=== PATIENT | male | born 1980 | race Caucasian/White ===

== ENCOUNTER → 2018-05-24 14:04 | Outpatient (CLI) | payer OTHER, SELFPAY | PROVIDERS: PCP Internal Medicine; Visit Provider Internal Medicine | DX: G47.33 Obstructive sleep apnea (adult) (pediatric) (principal); I10 Essential (primary) hypertension; R06.83 Snoring; E66.9 Obesity, unspecified | CPT/HCPCS: 95806 ==

== ENCOUNTER 2020-04-29 10:19 | Emergency (ER) | payer OTHER, SELFPAY ==
[2020-04-29 10:45] VITALS: BP 144/80; PULSE 68; RESP 19; TEMP 36.6; O2SAT 98; BMI 34.4
--- NOTE | 2020-04-29 10:58 | HMH.EDUTC ---
[facility] [place] Clinical Impression: Encounter for laboratory testing for COVID-19 virus Disposition: Home, Self-Care Condition on Discharge: Good Instructions: DI for COVID-19 (Suspected or Confirmed ), COVID-19: Testing and Tracing, Preventing the Spread of Coronavirus Discharge Instructions Additional Instructions: *Monitor Temp, Over the counter Motrin or Tylenol as directed/as needed Tylenol every 4 hours and Motrin every 6 hours (as long as your family doctor has told you that you can take it) for fever or pain. and straight to ER if unable to lower temp less than 101.0 after medication given Follow up IMMEDIATELY for new or worsening symptoms or no Noticeable improvement over the next 48-72 hours. 911 for difficulty breathing or swallowing You were tested for today for COVID19 your test result should be back in the next 24-48 hours, you may call to the [facility] to see if your test results are back in the next 48 hours [phone] [facility] hours are 9am-9pm You was given a handout with instructions for Self Quarantine and Self isolation for while you wait on test results and what to do if they are positive If you are positive the Health Dept will be contacting you also Referrals: Bertin Jimenez [Primary Care Provider] - As needed Time of Disposition: 10:59 Medical Decision Making - Ovidio Inquiry Pt receiving controlled substance: No Ovidio was queried for this patient: No Vital Signs: 04/29/20 10:45 Temperature 97.9 F Temperature Source Oral Pulse Rate [Left Brachial] 68 Respiratory Rate 19 Blood Pressure [Left Arm] 144/80 H Blood Pressure Mean [Left Arm] 101 Blood Pressure Source [Left Arm] Automatic Cuff Blood Pressure Position [Left Arm] Sitting 02 Sat by Pulse Oximetry 98 Oxygen Delivery Method Room Air Orders (Tests/Meds): ORDERS Category Date Time Status Covid-19 Nasal PCR ([facility]) Routine Lab 04/29/20 10:54 Received [facility] [place] HPI - General Stated complaint: Covid test Time Seen by Provider: 04/29/20 10:58 Mode of Arrival: Ambulatory Source of Information: Patient Limitations: No Limitations Description of Symptoms (Recalled from Triage Doc. by RN): REQUESTING COVID TEST; DENIES EXPOSURE OR SYMPTOMS HEENT Symptoms (Recalled from RN notes): No Resp Symptoms (Recalled from RN notes): No Skin Symptoms (Recalled from RN notes): No MS Symptoms (Recalled from RN notes): No Functional Status (Recalled from RN notes): WNL - History of Present Illness Provider Complaint: Patient state that he is wanting to get tested States that his hasnt felt well since yesterday having bodyaches, chills and fever and he has been caring for her Denies any symptoms at this time and no known exposure - Related Data Home Medications Medication Instructions Recorded Confirmed bisoprolol 5 1 tab PO DAILY 30 Days #30 tab 07/31/18 04/29/20 mg-hydrochlorothiazide 6.25 mg tablet Allergies Allergy/AdvReac Type Severity Reaction Status Date / Time No Known Allergies Allergy Verified 07/31/18 13:23 - Worker's Comp Is this a Worker's Comp case?: No [facility] History - Hepatitis A Screen Drug use history?: No High risk sexual behaviors?: No History of sexually transmitted infection?: No Currently employed?: No Childcare worker?: No Do you have indoor plumbing?: Yes Do you have electricity?: Yes Attestation statement:: This patient has been screened for Hepatitis A risk factors. I have reviewed the patient's past medical history: Yes Medical History: Reports:: Hypertension Denies:: Diabetes Mellitus Type 1, Diabetes Mellitus Type 2, MRSA Other Surgeries: Yes: No Previous Surgery Amputation: No - Social History Smoking Status: Never smoker Alcohol Intake: never Alcohol Intake Frequency:: other Substance Use Type: denies use Occupational Status: other Family Hx:: No significant family history ROS Obtained: Yes All systems reviewed & no additional complaints, Yes Systems reviewed as appropriate
[2020-04-29 11:11] VITALS: BP 144/80; PULSE 68; RESP 19; TEMP 36.6; O2SAT 98
--- NOTE | 2020-04-29 16:28 | PC.NURSE ---
PT NOTIFIED OF POSITIVE COVID REULT
== END 2020-04-29 11:17 | disposition home or self-care (01) ==
PROVIDERS: Emergency Provider Nurse Practitioner; PCP Internal Medicine
DX: U07.1 COVID-19 (principal); I10 Essential (primary) hypertension; Z79.899 Other long term (current) drug therapy
CPT/HCPCS: 99202; G0463; U0003

== ENCOUNTER → 2021-01-03 12:44 | Outpatient (CLI) | payer OTHER, SELFPAY | PROVIDERS: PCP Internal Medicine; Visit Provider Internal Medicine | DX: Z20.822 Contact with and (suspected) exposure to COVID-19 (principal) | CPT/HCPCS: C9803; U0003; U0005 ==

== ENCOUNTER → 2021-03-27 16:18 | Outpatient (CLI) | payer OTHER, SELFPAY ==
[2021-03-27 16:54] LABS: Coronavirus 19, PCR Not Detected (NotDetected); Influenza A, PCR Not Detected (NotDetected); Influenza B, PCR Not Detected (NotDetected)
[2021-03-27 17:10] LABS: Strep Scrn Group A (Rapid) Negative (Negative)
== END ==
PROVIDERS: PCP Internal Medicine; Visit Provider Internal Medicine
DX: Z20.822 Contact with and (suspected) exposure to COVID-19 (principal)
CPT/HCPCS: 87430; C9803; U0003; U0005

== ENCOUNTER → 2021-06-12 14:17 | Outpatient (CLI) | payer OTHER, SELFPAY ==
[2021-06-12 15:16] LABS: Basophils # 0.1 K/mm3 (0-0.2); Eosinophils # 0.2 K/mm3 (0.0-0.4); Eosinophils % 2.9 % (0.1-12.0); Hematocrit 46.1 % (42.0-52.0); Hemoglobin 15.4 g/dL (14.1-18.0); Lymphocytes # 1.9 K/mm3 (0.7-4.5); Lymphocytes % 27.1 % (10-50); Mean Corpuscular HGB Conc 33.3 g/dL (31.8-35.4); Mean Corpuscular Hemoglobin 29.4 pg (27.0-31.2); Mean Platelet Volume 8.1 fl (7.4-10.4); Monocytes # 0.4 K/mm3 (0.1-1.0); Monocytes % 4.9 % (1.7-9.3); Neutrophils # 4.5 K/mm3 (1.8-7.8); Platelet Count 295 K/mm3 (142-424); Red Blood Count 5.24 M/mm3 (4.60-6.20); White Blood Count 7.1 K/mm3 (4.8-10.8)
[2021-06-12 16:37] LABS: Alanine Aminotransferase 24 U/L (12-78); Albumin Level 4.6 g/dl (3.5-5.0); Albumin/Globulin Ratio 1.9 (1.1-1.8); Alkaline Phosphatase 74 U/L (38-126); Amylase 73 U/L (30-110); Anion Gap 15.4 mEq/L (5-15); Aspartate Amino Transferase 25 U/L (17-59); Bilirubin,Total 0.5 mg/dl (0.2-1.3); Blood Urea Nitrogen 17 mg/dl (9-20); Calcium 9.2 mg/dl (8.4-10.2); Carbon Dioxide 29 mmol/L (22.0-30.0); Chloride 101 mmol/L (98-107); Estimated Glomerular Filt Rate 125 ml/min (>60); GFR (African American) 151 ML/MIN (>60); Globulin 2.4 g/dL (1.3-3.2); Glucose 75 mg/dl (74-100); Potassium 4.4 mmoL/L (3.5-5.1); Sodium 141 mmol/L (136-145)
== END ==
PROVIDERS: Visit Provider Internal Medicine
DX: R10.11 Right upper quadrant pain (principal); R10.13 Epigastric pain; I10 Essential (primary) hypertension; K52.9 Noninfective gastroenteritis and colitis, unspecified
CPT/HCPCS: 80053; 82150; 85025

== ENCOUNTER → 2021-06-17 07:42 | Outpatient (CLI) | payer OTHER, SELFPAY ==
--- NOTE | 2021-06-17 07:51 | US_ITS ---
FINAL REPORT CLINICAL HISTORY: EPIGASTRIC PAIN,RUQ PAIN FINDINGS: Sonographic images of the abdomen were obtained. The liver has an unremarkable appearance with normal echogenicity. The gallbladder has an unremarkable appearance without evidence of gallstones. There is no evidence of biliary ductal dilatation. The common hepatic duct measures 3 mm, which is within normal limits. Limited images of the pancreas are unremarkable. The spleen size is normal. The right kidney measures 10.2 cm in length. The left kidney measures 10.7 cm in length. There is normal renal echogenicity. There is no evidence of hydronephrosis. The aorta has an unremarkable appearance. Limited images of the inferior vena cava are unremarkable. IMPRESSION: Unremarkable abdominal ultrasound with no acute abnormality identified. Reviewed, Interpreted and Dictated by Virgil Epstein MD Transcribed by Marium Hernandez Authenticated by Virgil Epstein MD on 06/17/2021 10:51:35 AM [facility]
== END ==
PROVIDERS: PCP Internal Medicine; Visit Provider Internal Medicine
DX: R10.13 Epigastric pain (principal); R10.11 Right upper quadrant pain
CPT/HCPCS: 76700

== ENCOUNTER 2021-06-26 17:14 | Emergency (ER) | payer OTHER, SELFPAY ==
[2021-06-26 17:14] VITALS: BP 153/85; PULSE 101; RESP 18; TEMP 37.3; O2SAT 97; BMI 35.4
[2021-06-26 17:31] VITALS: BP 135/64; PULSE 80; RESP 16; O2SAT 97
--- NOTE | 2021-06-26 17:33 | CT_ITS ---
PROCEDURE INFORMATION: Exam: CT Abdomen And Pelvis Without Contrast Exam date and time: 06/26/2021 5:33 PM Age: 41 years old Clinical indication: Abdominal pain; Epigastric; Additional info: Epigastric pain TECHNIQUE: Imaging protocol: Computed tomography of the abdomen and pelvis without contrast. Radiation optimization: All CT scans at this facility use at least one of these dose optimization techniques: automated exposure control; mA and/or kV adjustment per patient size (includes targeted exams where dose is matched to clinical indication); or iterative reconstruction. COMPARISON: ABDPELW/O CT ABD PELVIS W/O CONTRAST 02/15/2016 10:22 AM FINDINGS: Liver: Fatty liver. Gallbladder and bile ducts: No calcified gallstones. No gallbladder wall thickening or pericholecystic fluid. No intra- or extra-hepatic biliary ductal dilation. Pancreas: Moderate amount of peripancreatic fat stranding. No focal peripancreatic fluid collection. Spleen: Scattered punctate calcifications in the spleen, likely sequelae of prior granulomatous disease. Adrenal glands: Unremarkable. Kidneys and ureters: No renal or ureteral stones. No hydronephrosis. Stomach and bowel: Colonic diverticulosis without inflammatory changes. Appendix: Appendix is normal. Intraperitoneal space: No free fluid. No pneumoperitoneum. Vasculature: Unremarkable. Lymph nodes: Unremarkable. Urinary bladder: Within normal limits. Reproductive: Unremarkable. Bones/joints: No acute osseous abnormality. Soft tissues: Unremarkable. IMPRESSION: 1. Acute uncomplicated pancreatitis. 2. Fatty liver. 3. Colonic diverticulosis without evidence of acute diverticulitis.
[2021-06-26 17:41] LABS: Basophils # 0.2 K/mm3 (0-0.2); Basophils % 1.1 % (0.1-2.0); Eosinophils # 0.1 K/mm3 (0.0-0.4); Eosinophils % 0.5 % (0.1-12.0); Hematocrit 45.6 % (42.0-52.0); Lymphocytes # 1.6 K/mm3 (0.7-4.5); Mean Corpuscular HGB Conc 32.8 g/dL (31.8-35.4); Mean Corpuscular Hemoglobin 28.7 pg (27.0-31.2); Mean Corpuscular Volume 87.4 fl (80-94); Mean Platelet Volume 8.2 fl (7.4-10.4); Monocytes # 1.2 K/mm3 (0.1-1.0); Monocytes % 6.7 % (1.7-9.3); Neutrophils % 82.6 % (37.0-80.0); Platelet Count 286 K/mm3 (142-424); Red Blood Count 5.21 M/mm3 (4.60-6.20); Red Cell Distribution Width 12.7 % (11.5-17.5); White Blood Count 18.1 K/mm3 (4.8-10.8)
[2021-06-26 17:48] LABS: MANUAL DIFFERENTIAL MANUAL DIFFERENTIAL (MANUAL DIFF)
[2021-06-26 17:55] LABS: Lipase 95 U/L (23-300)
[2021-06-26 17:56] LABS: Alanine Aminotransferase 29 U/L (12-78); Albumin Level 4.6 g/dl (3.5-5.0); Albumin/Globulin Ratio 1.6 (1.1-1.8); Alkaline Phosphatase 60 U/L (38-126); Anion Gap 12.5 mEq/L (5-15); Aspartate Amino Transferase 24 U/L (17-59); Bilirubin,Total 0.9 mg/dl (0.2-1.3); Blood Urea Nitrogen 15 mg/dl (9-20); Calcium 8.8 mg/dl (8.4-10.2); Carbon Dioxide 29 mmol/L (22.0-30.0); Chloride 98 mmol/L (98-107); Creatinine Clearance Estimated 216 mL/min (50-200); Estimated Glomerular Filt Rate 125 ml/min (>60); GFR (African American) 151 ML/MIN (>60); Globulin 2.9 g/dL (1.3-3.2); Glucose 100 mg/dl (74-100); Potassium 3.5 mmoL/L (3.5-5.1); Sodium 136 mmol/L (136-145); Total Protein,Serum 7.5 g/dl (6.3-8.2)
[2021-06-26 18:01] VITALS: BP 131/59; PULSE 88; RESP 16; O2SAT 96
[2021-06-26 18:14] LABS: Lymphocytes % 12 % (10-50); Monocytes % 1 % (2-9); Neutrophils % 82 % (42-76); Platelet Estimate Normal; RBC Morphology Normal; Total Cells Counted 100
--- NOTE | 2021-06-26 18:29 | HMH.EDABDPAI ---
ED Disposition Clinical Impression: Pancreatitis Qualifiers: Chronicity: acute Pancreatitis type: other Acute pancreatitis complication: no infection or necrosis Qualified Code(s): K85.80 - Other acute pancreatitis without necrosis or infection Disposition: Home, Self-Care Condition on Discharge: Good Instructions: DI for Pancreatitis Prescriptions: Hydrocod/Acet 5/325 mg [[place] 5/325mg tablet] 1 tab PO Q6HP PRN #10 tab PRN Reason: Moderate To Severe Pain Transmission Status: Received by [facility] Ondansetron [Zofran 4mg ODT] 4 mg PO BIDP PRN #10 tab PRN Reason: Nausea Transmission Status: Pending to [facility] Referrals: Bertin Jimenez [Primary Care Provider] - - Critical Care Critical Care Time: No Attestation: On 06/26/21, the high probability of a clinically significant, sudden or life threatening deterioration of the following system(s) required my full and direct attention, intervention and personal management. The time I documented below is in addition to time spent performing reported procedures but includes the following listed in this critical care notation. Medical Decision Making - Medical Records Medical records reviewed: Yes: I reviewed the patient's medical records. - Ovidio Inquiry Pt receiving controlled substance: No Vital Signs: 06/26/21 17:14 Temperature 99.1 F Temperature Source Oral Pulse Rate [Radial] 101 H Respiratory Rate 18 Blood Pressure [Right Arm] 153/85 H Blood Pressure Mean [Right Arm] 107 Blood Pressure Position [Right Arm] Sitting 02 Sat by Pulse Oximetry 97 Oxygen Delivery Method Room Air - Lab Data Lab Results 06/26/21 17:22: WBC 18.1 H, RBC 5.21, Hgb 15.0, Hct 45.6, MCV 87.4, MCH 28.7, MCHC 32.8, RDW 12.7, Plt Count 286, MPV 8.2, Neut % (Auto) 82.6 H, Lymph % (Auto) 9.0 L, [place] % (Auto) 6.7, Eos % (Auto) 0.5, Baso % (Auto) 1.1, Neut # (Auto) 15.0 H, Lymph # (Auto) 1.6, [place] # (Auto) 1.2 H, Eos # (Auto) 0.1, Baso # (Auto) 0.2, Total Counted 100, Neutrophils % (Manual) 82 H, Band Neutrophils % 5.0, Lymphocytes % (Manual) 12, Monocytes % (Manual) 1 L, Platelet Estimate Normal, RBC Morphology Normal 06/26/21 17:22: Sodium 136, Potassium 3.5, Chloride 98, Carbon Dioxide 29, Anion Gap 12.5, BUN 15, Creatinine 0.70, Estimated Creat Clear 216, Estimated GFR 125, Est GFR ( Amer) 151, Glucose 100, Calcium 8.8, Total Bilirubin 0.9, AST 24, ALT 29, Alkaline Phosphatase 60, Total Protein 7.5, Albumin 4.6, Globulin 2.9, Albumin/Globulin Ratio 1.6 06/26/21 17:22: Lipase 95 Result diagrams: 06/26/21 17:22 06/26/21 17:22 Orders (Tests/Meds): ED MEDICATIONS Generic Name Dose Route Start Last Admin Trade Name Freq PRN Reason Stop Dose Admin Sodium Chloride 8 ml 06/26/21 17:33 Sodium Chloride 0.9% 10ml Vial IV 07/26/21 17:32 NEEDED PRN dilute pepcid Discontinued Medications Generic Name Dose Route Start Last Admin Trade Name Freq PRN Reason Stop Dose Admin Famotidine 20 mg 06/26/21 17:33 06/26/21 17:43 Famotidine 20mg/2ml Vial IV 06/26/21 17:34 20 mg ONCE ONE Administration Ondansetron HCl 4 mg 06/26/21 17:33 06/26/21 17:42 Ondansetron 4mg/2ml Vial IV 06/26/21 17:34 4 mg ONCE ONE Administration ORDERS Category Date Time Status Urinalysis and Microscopic Stat Lab 06/26/21 17:24 Ordered - CT Data CT Scan: Abdomen, Pelvis Time Received: 18:[address] Reviewed: Yes: I have reviewed the patient's CT results, I have viewed the radiologist's interpretation Findings Narrative: IMPRESSION: 1. Acute uncomplicated pancreatitis. 2. Fatty liver. 3. Colonic diverticulosis without evidence of acute diverticulitis. - Reevaluation(s) Time: 18:37 Reevaluation #1: On reevaluation, the patient is feeling much better. Repeat abdominal exam is benign. No evidence of acute abdomen. CT findings are concerning for acute pancreatitis. Patient's lipase appears to be normal. I do believe h
[2021-06-26 18:31] VITALS: BP 121/67; PULSE 79; RESP 15; O2SAT 96
--- NOTE | 2021-06-26 18:43 | PC.NURSE ---
Patient ambulatory to restroom
[2021-06-26 18:55] VITALS: BP 121/67; PULSE 87; RESP 16; TEMP 37.1; O2SAT 99
[2021-06-26 19:00] LABS: Microscopic, Urine URINE MICROSCOPIC (MICROSCOPIC)
[2021-06-26 19:04] LABS: Appearance,Urine CLEAR (Clear); Bilirubin,Urine Negative (Negative); Blood, Urine Negative (Negative); Color,Urine YELLOW (Yellow); Glucose,Urine (UA) Negative (Negative); Ketones,Urine Negative (Negative); Leukocyte Esterase,Urine Negative (Negative); Nitrate,Urine Negative (Negative); PH,Urine 7.5 (5.0-8.5); Protein,Urine Negative (Negative); Urobilinogen,Urine 0.2 EU/dl (0.2)
[2021-06-26 19:13] LABS: Bacteria,Urine Trace /lpf; RBC,Urine Occasional #/hpf (0-3); Squamous Epithelial Cell,Urine Occasional #/hpf (0-5); WBC,Urine Occasional #/hpf (0-3)
== END 2021-06-26 18:56 | disposition home or self-care (01) ==
PROVIDERS: Emergency Provider Emergency Medicine; PCP Internal Medicine
DX: K85.80 Other acute pancreatitis without necrosis or infection (principal); K57.30 Diverticulosis of large intestine without perforation or abscess without bleeding; K76.0 Fatty (change of) liver, not elsewhere classified; I10 Essential (primary) hypertension
CPT/HCPCS: 74176; 80053; 81001; 83690; 85007; 85025; 96374; 96375; 99284; J2405

== ENCOUNTER → 2021-10-12 16:52 | Outpatient (CLI) | payer OTHER, SELFPAY ==
[2021-10-12 17:20] LABS: Basophils # 0.1 K/mm3 (0-0.2); Basophils % 0.9 % (0.1-2.0); Eosinophils # 0.2 K/mm3 (0.0-0.4); Eosinophils % 2.4 % (0.1-12.0); Hematocrit 43.6 % (42.0-52.0); Hemoglobin 14.8 g/dL (14.1-18.0); Lymphocytes # 2.1 K/mm3 (0.7-4.5); Lymphocytes % 25.6 % (10-50); Mean Corpuscular HGB Conc 33.9 g/dL (31.8-35.4); Mean Corpuscular Volume 85.7 fl (80-94); Mean Platelet Volume 8.6 fl (7.4-10.4); Monocytes # 0.6 K/mm3 (0.1-1.0); Monocytes % 6.6 % (1.7-9.3); Neutrophils # 5.4 K/mm3 (1.8-7.8); Neutrophils % 64.5 % (37.0-80.0); Platelet Count 306 K/mm3 (142-424); Red Blood Count 5.09 M/mm3 (4.60-6.20); Red Cell Distribution Width 13.4 % (11.5-17.5); White Blood Count 8.3 K/mm3 (4.8-10.8)
[2021-10-12 18:37] LABS: Alanine Aminotransferase 19 U/L (12-78); Albumin/Globulin Ratio 1.5 (1.1-1.8); Alkaline Phosphatase 75 U/L (38-126); Amylase 69 U/L (30-110); Anion Gap 12.2 mEq/L (5-15); Aspartate Amino Transferase 21 U/L (17-59); Bilirubin,Total 0.2 mg/dl (0.2-1.3); Blood Urea Nitrogen 22 mg/dl (9-20); Calcium 8.9 mg/dl (8.4-10.2); Carbon Dioxide 28 mmol/L (22.0-30.0); Chloride 102 mmol/L (98-107); Chol/HDL Ratio 5.7 (1-3.5); Cholesterol 189 mg/dl (140-200); Estimated Glomerular Filt Rate 107 ml/min (>60); GFR (African American) 130 ML/MIN (>60); Globulin 2.6 g/dL (1.3-3.2); Glucose 91 mg/dl (74-100); HDL Cholesterol 33 mg/dl (40-60); Lipase 87 U/L (23-300); Potassium 4.2 mmoL/L (3.5-5.1); Sodium 138 mmol/L (136-145); Total Protein,Serum 6.6 g/dl (6.3-8.2); Triglycerides 191 mg/dl (30-150); VLDL Cholesterol 38 mg/dL (0-40)
[2021-10-12 18:48] LABS: Direct LDL Cholesterol 105.03 mg/dL (100-129)
== END ==
PROVIDERS: PCP Internal Medicine; Visit Provider Internal Medicine
DX: R10.13 Epigastric pain (principal); I10 Essential (primary) hypertension; E78.5 Hyperlipidemia, unspecified; R73.02 Impaired glucose tolerance (oral)
CPT/HCPCS: 80053; 80061; 82150; 83690; 85025

== ENCOUNTER → 2022-04-12 17:06 | Outpatient (CLI) | payer OTHER, SELFPAY ==
[2022-04-12 19:58] LABS: Chloride 102 mmol/L (98-107)
[2022-04-12 19:59] LABS: Potassium 4.2 mmoL/L (3.5-5.1); Sodium 139 mmol/L (136-145)
[2022-04-12 20:01] LABS: Alanine Aminotransferase 61 U/L (12-78); Amylase 75 U/L (30-110); Anion Gap 15.2 mEq/L (5-15); Aspartate Amino Transferase 31 U/L (17-59); Blood Urea Nitrogen 23 mg/dl (9-20); Carbon Dioxide 26 mmol/L (22.0-30.0); Estimated Glomerular Filt Rate 93 ml/min (>60); GFR (African American) 113 ML/MIN (>60)
[2022-04-12 20:02] LABS: Albumin Level 4.5 g/dl (3.5-5.0); Alkaline Phosphatase 112 U/L (38-126); Bilirubin,Total 0.3 mg/dl (0.2-1.3); Chol/HDL Ratio 5.8 (1-3.5); Cholesterol 220 mg/dl (140-200); Globulin 2.3 g/dL (1.3-3.2); Glucose 84 mg/dl (74-100); HDL Cholesterol 38 mg/dl (40-60); Total Protein,Serum 6.8 g/dl (6.3-8.2); Triglycerides 301 mg/dl (30-150); VLDL Cholesterol 60 mg/dL (0-40)
[2022-04-12 20:13] LABS: Direct LDL Cholesterol 131.76 mg/dL (100-129)
== END ==
PROVIDERS: PCP Internal Medicine; Visit Provider Internal Medicine
DX: I10 Essential (primary) hypertension (principal); E78.5 Hyperlipidemia, unspecified; R73.02 Impaired glucose tolerance (oral); J31.0 Chronic rhinitis; K85.90 Acute pancreatitis without necrosis or infection, unspecified; G47.33 Obstructive sleep apnea (adult) (pediatric)
CPT/HCPCS: 80053; 80061; 82150

== ENCOUNTER → 2022-04-22 11:09 | Outpatient (CLI) | payer OTHER, SELFPAY | PROVIDERS: PCP Internal Medicine; Visit Provider Nurse Practitioner Family | DX: R10.11 Right upper quadrant pain (principal) ==

== ENCOUNTER → 2022-04-27 09:53 | Outpatient (CLI) | payer OTHER, SELFPAY ==
[2022-05-02 18:45] LABS: Pancreatic Elastase, Fecal >500 (>200)
== END ==
LOC: LAB.DROPOF 09:54
PROVIDERS: PCP Internal Medicine; Visit Provider Nurse Practitioner Family
DX: K85.90 Acute pancreatitis without necrosis or infection, unspecified (principal); R10.11 Right upper quadrant pain; R10.31 Right lower quadrant pain; R14.0 Abdominal distension (gaseous); R19.4 Change in bowel habit
CPT/HCPCS: 82656

== ENCOUNTER → 2022-06-14 14:18 | Outpatient (CLI) | payer OTHER, SELFPAY ==
--- NOTE | 2022-06-14 14:41 | CT_ITS ---
PROCEDURE INFORMATION: Exam: CT Abdomen And Pelvis With Contrast Exam date and time: 06/14/2022 4:51 PM Age: 42 years old Clinical indication: Abdominal pain; Generalized; Additional info: Upper and lower abdominal pain/back pain TECHNIQUE: Imaging protocol: Computed tomography of the abdomen and pelvis with contrast. Radiation optimization: All CT scans at this facility use at least one of these dose optimization techniques: automated exposure control; mA and/or kV adjustment per patient size (includes targeted exams where dose is matched to clinical indication); or iterative reconstruction. Contrast material: ISOVUE; Contrast volume: 75 ml; Contrast route: IV; Other protocol: This patient has received [address] and 0 known cardiac nuclear medicine studies in the 12 months prior to the current study. COMPARISON: CT ABDOMEN PELVIS WO CON 06/26/2021 5:36 PM FINDINGS: Lungs: Nonspecific mild left basilar streaky opacities suggest atelectasis or parenchymal scarring. Pleural spaces: There are no pleural effusions. Heart: The visualized portions of the heart are unremarkable. Liver: There is diffuse decrease in hepatic/liver parenchymal density consistent with fatty infiltration. Gallbladder and bile ducts: The gallbladder is normal. Pancreas: There is very subtle hazy fat stranding involving the proximal pancreas and adjacent duodenum suggesting edema. Findings raise the question of mild pancreatitis or duodenitis. Correlate clinically. The remainder of the pancreas is within range of normal. No peripancreatic fluid collections. Spleen: The spleen demonstrates punctate calcifications, consistent with remote granulomatous organism exposure. Adrenal glands: The adrenal glands are normal. Kidneys and ureters: The kidneys are normal. Stomach and bowel: Unopacified loops of small bowel are within range of normal. There are a few scattered colonic diverticula. No evidence of diverticulitis. The stomach is normal. Unopacified loops of small bowel are within range of normal. Appendix: A normal appendix is identified. Intraperitoneal space: No evidence of intraperitoneal free air. There is no evidence of free intraperitoneal or pelvic fluid. Vasculature: No abdominal aortic aneurysm. Lymph nodes: There are a few small lymph nodes adjacent to the proximal pancreas, not of pathologic significance by CT size criteria. There is no evidence of pathologic adenopathy. Urinary bladder: The bladder is decompressed. There is mild nonspecific bladder wall thickening. Reproductive: The prostate and seminal vesicles are normal. Bones/joints: There is no evidence of acute fracture. Soft tissues: Unremarkable. IMPRESSION: 1. Subtle hazy fat stranding adjacent to the proximal pancreas and adjacent duodenum suggesting edema/inflammation. Findings raise the question of mild pancreatitis or duodenitis. Correlate clinically and with serological markers. 2. Fatty hepatic infiltration. 3. Mild bladder wall thickening suggesting incomplete distention, chronic outflow obstruction or cystitis.
[2022-06-14 14:52] LABS: Chloride 103 mmol/L (98-107); Sodium 136 mmol/L (136-145)
[2022-06-14 14:55] LABS: Alanine Aminotransferase 28 U/L (12-78); Albumin Level 4.5 g/dl (3.5-5.0); Albumin/Globulin Ratio 1.5 (1.1-1.8); Alkaline Phosphatase 65 U/L (38-126); Amylase 91 U/L (30-110); Aspartate Amino Transferase 26 U/L (17-59); Bilirubin,Total 0.8 mg/dl (0.2-1.3); Blood Urea Nitrogen 13 mg/dl (9-20); Calcium 8.9 mg/dl (8.4-10.2); Carbon Dioxide 26 mmol/L (22.0-30.0); Estimated Glomerular Filt Rate 124 ml/min (>60); GFR (African American) 150 ML/MIN (>60); Globulin 3.1 g/dL (1.3-3.2); Glucose 137 mg/dl (74-100); Lipase 78 U/L (23-300); Total Protein,Serum 7.6 g/dl (6.3-8.2)
[2022-06-14 15:51] LABS: Basophils # 0.1 K/mm3 (0-0.2); Basophils % 0.5 % (0.1-2.0); Eosinophils # 0.1 K/mm3 (0.0-0.4); Eosinophils % 0.9 % (0.1-12.0); Hemoglobin 15.7 g/dL (14.1-18.0); Lymphocytes # 1.6 K/mm3 (0.7-4.5); Lymphocytes % 11.7 % (10-50); Mean Corpuscular HGB Conc 33.3 g/dL (31.8-35.4); Mean Corpuscular Hemoglobin 28.6 pg (27.0-31.2); Mean Platelet Volume 8.3 fl (7.4-10.4); Monocytes # 0.7 K/mm3 (0.1-1.0); Monocytes % 4.9 % (1.7-9.3); Neutrophils # 11.5 K/mm3 (1.8-7.8); Platelet Count 274 K/mm3 (142-424); Red Blood Count 5.47 M/mm3 (4.60-6.20)
== END ==
PROVIDERS: PCP Internal Medicine; Visit Provider Nurse Practitioner Family
DX: R10.30 Lower abdominal pain, unspecified (principal); R10.10 Upper abdominal pain, unspecified; M54.9 Dorsalgia, unspecified
CPT/HCPCS: 36415; 74177; 80053; 82150; 83690; 85025; Q9967

== ENCOUNTER → 2022-06-25 08:38 | Outpatient (CLI) | payer OTHER, SELFPAY ==
--- NOTE | 2022-06-25 08:41 | MR_ITS ---
FINAL REPORT TECHNIQUE: Multiplanar and multisequence imaging was obtained before and after the intravenous injection of gadolinium contrast. CLINICAL HISTORY: RECURRENT ACUTE PANCREATITIS. COMPARISON: CT abdomen and pelvis with contrast 06/14/2022 FINDINGS: The liver is fatty infiltrated. There is no focal hepatic lesion. The liver is otherwise homogeneous. The spleen is normal in size and signal intensity. Adrenal glands are normal without nodule identified. The pancreas demonstrates no mass or surrounding fluid. There is no hydronephrosis or renal mass. The kidneys are unremarkable. Limited evaluation of the GI tract is without acute abnormality. There is no abdominal lymphadenopathy or ascites. The gallbladder is present. The common duct is normal in caliber without filling defect or stricture. The pancreatic duct is not dilated but not well seen on MRCP images. Postcontrast images reveal normal enhancement of the solid abdominal organs. The portal, splenic, and hepatic veins are patent. IMPRESSION: Fatty liver. Otherwise no acute abnormality. Reviewed, Interpreted and Dictated by Kelly Peck MD Transcribed by Zamzam Parks Authenticated and [facility]
== END ==
LOC: RAD 08:39
PROVIDERS: PCP Internal Medicine; Visit Provider Nurse Practitioner Family
DX: K85.90 Acute pancreatitis without necrosis or infection, unspecified (principal)
CPT/HCPCS: 74183; 76376; A9576

== ENCOUNTER → 2022-10-11 14:28 | Outpatient (CLI) | payer OTHER, SELFPAY ==
[2022-10-11 15:58] LABS: Basophils % 0.4 % (0.1-2.0); Eosinophils # 0.2 K/mm3 (0.0-0.4); Eosinophils % 3.6 % (0.1-12.0); Hematocrit 44.1 % (42.0-52.0); Hemoglobin 14.7 g/dL (14.1-18.0); Lymphocytes # 1.7 K/mm3 (0.7-4.5); Mean Corpuscular HGB Conc 33.3 g/dL (31.8-35.4); Mean Corpuscular Volume 83.9 fl (80-94); Monocytes # 0.5 K/mm3 (0.1-1.0); Monocytes % 7.1 % (1.7-9.3); Neutrophils # 4.2 K/mm3 (1.8-7.8); Neutrophils % 62.8 % (37.0-80.0); Platelet Count 252 K/mm3 (142-424); Red Blood Count 5.26 M/mm3 (4.60-6.20); Red Cell Distribution Width 13.2 % (11.5-17.5); White Blood Count 6.6 K/mm3 (4.8-10.8)
[2022-10-11 16:18] LABS: Alanine Aminotransferase 32 U/L (12-78); Albumin Level 4.2 g/dl (3.5-5.0); Albumin/Globulin Ratio 1.8 (1.1-1.8); Alkaline Phosphatase 78 U/L (38-126); Anion Gap 18.2 mEq/L (5-15); Aspartate Amino Transferase 33 U/L (17-59); Bilirubin,Total 0.7 mg/dl (0.2-1.3); Blood Urea Nitrogen 22 mg/dl (9-20); Calcium 8.5 mg/dl (8.4-10.2); Carbon Dioxide 25 mmol/L (22.0-30.0); Chloride 100 mmol/L (98-107); Chol/HDL Ratio 4.6 (1-3.5); Cholesterol 190 mg/dl (140-200); Estimated Glomerular Filt Rate 124 ml/min (>60); GFR (African American) 150 ML/MIN (>60); Globulin 2.4 g/dL (1.3-3.2); Glucose 83 mg/dl (74-100); HDL Cholesterol 41 mg/dl (40-60); Potassium 4.2 mmoL/L (3.5-5.1); Sodium 139 mmol/L (136-145); Total Protein,Serum 6.6 g/dl (6.3-8.2); Triglycerides 115 mg/dl (30-150); VLDL Cholesterol 23 mg/dL (0-40)
[2022-10-11 16:29] LABS: Direct LDL Cholesterol 117.44 mg/dL (100-129)
== END ==
PROVIDERS: PCP Internal Medicine; Visit Provider Internal Medicine
DX: I10 Essential (primary) hypertension (principal); E78.5 Hyperlipidemia, unspecified; R73.02 Impaired glucose tolerance (oral); G47.33 Obstructive sleep apnea (adult) (pediatric); Z87.19 Personal history of other diseases of the digestive system
CPT/HCPCS: 80053; 80061; 85025

== ENCOUNTER 2023-04-27 09:27 | Emergency (ER) | payer OTHER, SELFPAY ==
[2023-04-27 09:30] VITALS: BP 146/77; PULSE 84; RESP 18; TEMP 37; O2SAT 95; BMI 39.1
--- NOTE | 2023-04-27 09:44 | PC.NURSE ---
Dr. Hernandez at [facility] for pt eval
[2023-04-27] MEDS: BELLADONNA ALKALOIDS 60 ML ML PO (09:49)
[2023-04-27] MEDS: FAMOTIDINE 20MG/2ML VIAL 20 MG IV (09:49)
[2023-04-27] MEDS: KETOROLAC 30MG/ML VIAL 15 MG IV (09:49)
--- NOTE | 2023-04-27 09:49 | ED_ITS ---
Discharge Plan Disposition Patient Disposition: Home, Self-Care Chief Complaint: Abdominal Pain Prescriptions Prescriptions: No Action bisoprolol-hydrochlorothiazide 5-6.25 mg tablet 1 tab PO DAILY 30 Days Qty: 30 lisinopril 2.5 mg tablet 2.5 mg PO DAILY Patient Comments: TAKE 1 TABLET BY MOUTH ONCE DAILY Referrals Follow up/Referrals: Bertin Jimenez MD [Primary Care Provider] - See instructions Activity Restrictions/Add. Instructions Additional Instructions/Restrictions: [id number] Pepcid or esomeprazole. Call your family doctor to establish care for this visit to the emergency department and schedule follow-up within 48 hours to ensure improvement. If you have any worsening of your condition or any other concerning signs or symptoms, return to the emergency department or your primary care doctor for further evaluation. Clinical Impressions Clinical Impression: Gastritis Instructions Patient Instructions: DI for Acute Abdominal Pain Discharge ED Provider: Wayne Hernandez General Adult HPI General Chief complaint: Abdominal Pain Stated complaint: Abdominal pain, back pain Time Seen by Provider: 04/27/23 09:30 History of Present Illness HPI narrative: 43-year-old male history of pancreatitis of unknown etiology presenting with abdominal pain and back pain. Pain started 2 days prior, abdominal pain started yesterday, this is how his pancreatitis presented last time. Denies vomiting, diarrhea. Patient is still passing gas and having bowel movements. Last bowel movement was last night, 1/2 and was largely constipated. Patient has not had any abdominal surgeries. Has not noticed anything that makes the pain better or worse. Not made better or worse with application pressure. Pain is currently moderate in intensity starts in back and radiates forward. Related Data Home Medications Medication Instructions Recorded Confirmed bisoprolol 5 1 tab PO DAILY Hypertension 30 07/31/18 04/29/20 mg-hydrochlorothiazide 6.25 mg days #30 tabs tablet lisinopril 2.5 mg tablet 2.5 mg PO DAILY 04/27/23 04/27/23 Allergies Allergy/AdvReac Type Severity Reaction Status Date / Time No Known Allergies Allergy Verified 04/27/23 10:00 [facility] Disclaimer: The information contained in this section may have been updated after the patient was seen, as this information can be updated by other users. Social History Smoking Status: Never smoker alcohol intake: never substance use type: denies use current occupational status: other Travel in the last 8 weeks: None ROS Obtained: Yes All systems reviewed & no additional complaints except as documented Physical Exam General General appearance: alert and in no apparent distress Head Head exam: atraumatic and normocephalic Eye Eye exam: Present normal appearance, PERRL and EOMI ENT ENT exam: Present mucous membranes moist Neck Neck exam: Present normal inspection, full ROM and trachea midline Respiratory Respiratory exam: Absent respiratory distress, wheezes, stridor, accessory muscle use or prolonged expiratory phase Cardiovascular Cardiovascular exam: Present normal rhythm Abdominal Exam Abdominal exam: Present soft; Absent distention, tenderness, guarding, rebound or rigidity Extremities Exam Extremities exam: Absent edema Back Exam Back exam: Absent CVA tenderness (R) or CVA tenderness (L) Neurological Exam Neurological exam: Present alert, oriented X3, CN II-XII intact and normal gait; Absent motor sensory deficit Skin Skin exam: Present warm and dry; Absent diaphoresis or erythema Medical Decision Making Medical Records Medical records reviewed: Yes I reviewed the patient's medical records. Ovidio Inquiry Pt receiving controlled substance: No Ovidio was queried for this patient: No Vital Signs: 04/27/23 09:30 04/27/23 10:01 04/27/23 10:30 Temperature 98.6 F Temperature Source Oral Pulse Rate 81 80 Pulse Rate [Left Radial] 84 Respiratory Rate 18 Blood Pressure 116/74 109/68 L Blood Pressure [Right Arm] 146/77 H Blood Pressure Mean [Right Arm] 100 Blood Pressure Source [Right Arm] Automatic Cuff Blood Pressure Position [Right Arm] Sitting 02 Sat by Pulse Oximetry 95 93 L 93 L Oxygen Delivery Method Room Air Room Air Room Air Lab Data Lab Results 04/27/23 09:45: WBC 15.5 H, RBC 5.30, Hgb 15.5, Hct 45.7, MCV 86.2, MCH 29.3, MCHC 33.9, RDW 13.2, Plt Count 214, MPV 8.6, Neut % (Auto) 87.9 H, Lymph % (Auto) 6.6 L, [place] % (Auto) 4.0, Eos % (Auto) 1.3, Baso % (Auto) 0.2, Neut # (Auto) 13.6 H, Lymph # (Auto) 1.0, [place] # (Auto) 0.6, Eos # (Auto) 0.2, Baso # (Auto) 0.0, Total Counted 100, Neutrophils % (Manual) 91 H, Lymphocytes % (Manual) 6 L, Monocytes % (Manual) 3, Platelet Estimate Normal, RBC Morphology Normal, Sodium 134 L, Potassium 3.8, Chloride 101, Carbon Dioxide 27, Anion Gap 9.8, BUN 16, Creatinine 0.70, Estimated Creat Clear 234, Estimated GFR 124, Est GFR ( Amer) 150, Glucose 116 H, Calcium 8.6, Total Bilirubin 0.7, AST 30, ALT 37, Alkaline Phosphatase 77, Troponin I < 0.01, Total Protein 7.1, Albumin 4.1, Globulin 3.0, Albumin/Globulin Ratio 1.4, Lipase 51 04/27/23 09:45 04/27/23 09:45 Orders (Tests/Meds): ED MEDICATIONS Generic Name Dose Route Start Last Admin Trade Name Freq PRN Reason Stop Dose Admin Sodium Chloride 8 ml 04/27/23 09:44 Sodium Chloride 0.9% 10ml Vial IV 05/27/23 09:43 NEEDED PRN dilute pepcid Discontinued Medications Generic Name Dose Route Start Last Admin Trade Name Freq PRN Reason Stop Dose Admin Belladonna Alkaloids 60 ml 04/27/23 09:44 04/27/23 09:49 Belladonna Alkaloids 60 Ml Ml PO 04/27/23 09:45 60 ml ONCE ONE Administration Famotidine 20 mg 04/27/23 09:44 04/27/23 09:49 Famotidine 20mg/2ml Vial IV 04/27/23 09:45 20 mg ONCE ONE Administration Ketorolac Tromethamine 15 mg 04/27/23 09:44 04/27/23 09:49 Ketorolac 30mg/Ml Vial IV 04/27/23 09:45 15 mg ONCE ONE Administration ORDERS Category Date Time Status POCUS Point of Care (ER Only) Stat Exams 04/27/23 10:05 Taken CBC w/Auto Diff [Complete Blood Count Auto Diff] Stat Lab 04/27/23 09:45 Completed CMP [Comprehensive Metabolic Panel] Stat Lab 04/27/23 09:45 Completed Lipase Stat Lab 04/27/23 09:45 Completed Trop I [Troponin I] Stat Lab 04/27/23 09:45 Completed Troponin I Q3H Lab 04/27/23 12:45 Ordered Troponin I Q3H Lab 04/27/23 15:45 Ordered Medical Decision Narrative: 43-year-old male history of pancreatitis of unknown etiology presenting with abdominal pain and back pain. Pain started 2 days prior, abdominal pain started yesterday, this is how his pancreatitis presented last time. Denies vomiting, diarrhea. Patient is still passing gas and having bowel movements. Last bowel movement was last night, 1/2 and was largely constipated. Patient has not had any abdominal surgeries. Has not noticed anything that makes the pain better or worse. Not made better or worse with application pressure. Pain is currently moderate in intensity starts in back and radiates forward. It has been noted that patient has seen numerous specialist, had GI scopes upper and lower,And even had abdominal CT and MRI done without any obvious findings. History was obtained via conversation with patient and . On arrival, patient hemodynamically stable, alert, oriented x4, appropriate, GCS 15, moving all extremities spontaneously, pupils equal and reactive to light. Full physical exam performed and significant for very well-appearing male no acute distress. Abdomen is soft, nontender, nondistended. No evidence of abdominal bruising. No flank tenderness. Patient is normotensive, nontachycardic. Cardiopulmonary exam within normal limits. Differential includes PUD, gastritis, enteritis, malabsorption, H. pylori, pancreatitis, cholecystitis, hepatitis, constipation, ACS, [place], among others. Patient was given Pepcid, GI cocktail, Toradol for symptomatic management and correction of underlying abnormalities. Workup independently interpreted and significant for nonactionable CBC, but mild leukocytosis 15. Other labs nonactionable chemistry lipase. Troponin negative. Bedside ultrasound without abnormal findings of the right upper quadrant. On reevaluation, patient feeling much better after medications. Given patient presentation, workup, history, this most likely represents gastritis. Because patient at baseline without signs or symptoms of clinical decompensation, deemed appropriate for discharge. Results were relayed to patient who voiced understanding and were agreeable to outpatient management and follow up. At the time of discharge the patient was hemodynamically stable, tolerating PO, and mobilizing appropriately. Procedures Limited Ultrasound Indication:: Limited RUQ ultrasound Indication: Abdominal pain Identified structures: -Gallbladder -Gallbladder wall -Common bile duct -Liver Findings: Sonographic Suarez sign: Absent Gallstones: Absent Sludge: Absent Pericholecystic fluid: Absent Maximal GB wall thickness (mm) (normal is </= 3mm): Normal Common bile duct width (mm) (normal is </= 6mm): Normal Gallbladder width (cm) (normal is < 4cm): Normal Gallbladder length (cm) (normal is < 10cm): Normal Impression: -Normal gallbladder Images were saved to permanent archive The study was technically adequate CPT 64053-64 This study was performed by me, and I personally interpreted all images/videos. Based on my clinical judgement, these images were adequate/inadequate and did/did not necessitate further imaging. Critical Care Critical Care Time Critical Care Time: No
[2023-04-27 09:59] LABS: Basophils % 0.2 % (0.1-2.0); Eosinophils # 0.2 K/mm3 (0.0-0.4); Eosinophils % 1.3 % (0.1-12.0); Hematocrit 45.7 % (42.0-52.0); Hemoglobin 15.5 g/dL (14.1-18.0); Lymphocytes % 6.6 % (10-50); Mean Corpuscular HGB Conc 33.9 g/dL (31.8-35.4); Mean Corpuscular Hemoglobin 29.3 pg (27.0-31.2); Mean Corpuscular Volume 86.2 fl (80-94); Mean Platelet Volume 8.6 fl (7.4-10.4); Monocytes # 0.6 K/mm3 (0.1-1.0); Neutrophils # 13.6 K/mm3 (1.8-7.8); Neutrophils % 87.9 % (37.0-80.0); Platelet Count 214 K/mm3 (142-424); Red Cell Distribution Width 13.2 % (11.5-17.5); White Blood Count 15.5 K/mm3 (4.8-10.8)
[2023-04-27 10:01] VITALS: BP 116/74; PULSE 81; O2SAT 93
[2023-04-27 10:09] LABS: Alanine Aminotransferase 37 U/L (12-78); Albumin Level 4.1 g/dl (3.5-5.0); Albumin/Globulin Ratio 1.4 (1.1-1.8); Alkaline Phosphatase 77 U/L (38-126); Anion Gap 9.8 mEq/L (5-15); Aspartate Amino Transferase 30 U/L (17-59); Bilirubin,Total 0.7 mg/dl (0.2-1.3); Blood Urea Nitrogen 16 mg/dl (9-20); Calcium 8.6 mg/dl (8.4-10.2); Carbon Dioxide 27 mmol/L (22.0-30.0); Chloride 101 mmol/L (98-107); Creatinine Clearance Estimated 234 mL/min (50-200); Estimated Glomerular Filt Rate 124 ml/min (>60); GFR (African American) 150 ML/MIN (>60); Glucose 116 mg/dl (74-100); Lipase 51 U/L (23-300); Potassium 3.8 mmoL/L (3.5-5.1); Sodium 134 mmol/L (136-145); Total Protein,Serum 7.1 g/dl (6.3-8.2)
[2023-04-27 10:21] LABS: MANUAL DIFFERENTIAL MANUAL DIFFERENTIAL (MANUAL DIFF)
[2023-04-27 10:22] LABS: Troponin I < 0.01 ng/ml (0.00-0.034)
[2023-04-27 10:30] VITALS: BP 109/68; PULSE 80; O2SAT 93
--- NOTE | 2023-04-27 10:38 | PC.NURSE ---
pt states pain is better and now it's more of a hunger pain. er md aware. bed in lowest position. call light within reach.
[2023-04-27 11:45] LABS: Lymphocytes % 6 % (10-50); Monocytes % 3 % (2-9); Neutrophils % 91 % (42-76); Platelet Estimate Normal; RBC Morphology Normal; Total Cells Counted 100
--- NOTE | 2023-04-27 12:37 | PC.NURSE ---
Rounded on patient at this time, readjusted b/p cuff and updated patient on POC and that patient was in with a critical patient at this time and would be back with them as soon as he could. Pt agreeable, no other needs noted.
[2023-04-27 12:53] VITALS: BP 119/56; PULSE 74; RESP 20; TEMP 36.8; O2SAT 94
== END 2023-04-27 12:56 | disposition home or self-care (01) ==
PROVIDERS: Emergency Provider Emergency Medicine; PCP Internal Medicine
DX: K29.70 Gastritis, unspecified, without bleeding (principal); R10.9 Unspecified abdominal pain; M54.9 Dorsalgia, unspecified
CPT/HCPCS: 80053; 83690; 84484; 85007; 85025; 96374; 96375; 99285

== ENCOUNTER 2023-09-22 14:50 | Emergency (ER) | payer OTHER, SELFPAY ==
[2023-09-22 14:52] VITALS: BP 145/83; PULSE 86; RESP 18; TEMP 36.8; O2SAT 94; BMI 40.3
[2023-09-22 15:00] VITALS: BP 141/94; PULSE 81; RESP 16; O2SAT 95
[2023-09-22] MEDS: LACTATED RINGERS 1000ML 1,000 ML 999 ML IV (15:10)
[2023-09-22] MEDS: ONDANSETRON 4MG/2ML VIAL 4 MG IV (15:10)
--- NOTE | 2023-09-22 15:27 | ED_ITS ---
Discharge Plan Disposition Patient Disposition: Home, Self-Care Prescriptions Prescriptions: New promethazine 25 mg tablet 25 mg PO Q6H PRN (Reason: nausea and vomiting) Qty: 20 0RF ondansetron 4 mg tablet,disintegrating 4 mg PO Q6H PRN (Reason: nausea and vomiting) Qty: 10 0RF No Action bisoprolol-hydrochlorothiazide 5-6.25 mg tablet 1 tab PO DAILY 30 Days Qty: 30 lisinopril 2.5 mg tablet 2.5 mg PO DAILY Patient Comments: TAKE 1 TABLET BY MOUTH ONCE DAILY Referrals Follow up/Referrals: Bertin Jimenez MD [Primary Care Provider] - See instructions Activity Restrictions/Add. Instructions Additional Instructions/Restrictions: Do your best not to take Zofran and Phenergan at the same time. If you attempt taking Zofran and you are still nauseated or vomiting, you can take a second Zofran, total of 8 mg. You can do this every 6-8 hours as needed for nausea and vomiting. If you continue to vomit, Phenergan can be your backup medication. Be sure to greens picker antidiarrheal such as loperamide, take as described/discussed and as needed. Call your family doctor to establish care for this visit to the emergency department and schedule follow-up within 48 hours to ensure improvement. If you have any worsening of your condition or any other concerning signs or symptoms, return to the emergency department or your primary care doctor for further evaluation. Clinical Impressions Clinical Impression: Vomiting and diarrhea Instructions Patient Instructions: DI for Diarrhea and Traveler's Diarrhea -- Adult, DI for Diarrhea and Traveler's Diarrhea -- Child, DI for Nausea -- Adult, DI for Nausea -- Child Discharge ED Provider: Wayne Hernandez General Adult HPI General Chief complaint: Nausea/Vomiting/Diarrhea Stated complaint: vomiting, diarrhea Time Seen by Provider: 09/22/23 15:03 Mode of Arrival: Ambulatory Source of Information: Patient Limitations: No Limitations Description of Symptoms (Recalled from ER Triage Doc. by RN): pt reports nausea, vomiting, and diarrhea since 8am this am, states he has vomited twice and had abou 8-10 episodes of diarrhea, states it is a liquid yellow consistency, denies blood in stool or vomit History of Present Illness HPI narrative: Please note that above description of symptoms, in this electronic medical record under categorization of recalled from ER triage doctor by RN are reflective of an initial nursing assessment, however, is not reflective of my full history and physical exam that was personally taken and clarified. Consequentially, this preceding description of symptoms, which may include the patient's categorized chief complaint in the EMR, do not reflect my personal clinical impression, and the ultimate description of history of present illness and patient stated complaints should be deferred to this section of the note. Unless stated otherwise or congruent with this section of the note, additional signs, symptoms, or incongruence should be interpreted as inaccurate with my clinical impression. Related Data Home Medications Medication Instructions Recorded Confirmed bisoprolol 5 1 tab PO DAILY Hypertension 30 07/31/18 04/29/20 mg-hydrochlorothiazide 6.25 mg days #30 tabs tablet lisinopril 2.5 mg tablet 2.5 mg PO DAILY 04/27/23 04/27/23 Previous Rx's Medication Instructions Recorded ondansetron 4 mg disintegrating 4 mg PO Q6H PRN nausea and 09/22/23 tablet vomiting #10 tabs promethazine 25 mg tablet 25 mg PO Q6H PRN nausea and 09/22/23 vomiting #20 tabs Allergies Allergy/AdvReac Type Severity Reaction Status Date / Time No Known Allergies Allergy Verified 04/27/23 10:00 [facility] Disclaimer: The information contained in this section may have been updated after the patient was seen, as this information can be updated by other users. Social History Smoking Status: Never smoker alcohol intake: never substance use type: denies use current occupational status: other Travel in the last 8 weeks: None ROS Obtained: Yes All systems reviewed & no additional complaints except as documented Physical Exam General General appearance: alert and in no apparent distress Head Head exam: atraumatic and normocephalic Eye Eye exam: Present normal appearance, PERRL and EOMI ENT ENT exam: Present mucous membranes moist Neck Neck exam: Present normal inspection, full ROM and trachea midline Respiratory Respiratory exam: Absent respiratory distress, wheezes, stridor, accessory muscle use or prolonged expiratory phase Cardiovascular Cardiovascular exam: Present normal rhythm Abdominal Exam Abdominal exam: Present soft; Absent distention, tenderness, guarding, rebound or rigidity Extremities Exam Extremities exam: Absent edema Neurological Exam Neurological exam: Present alert, oriented X3, CN II-XII intact and normal gait; Absent motor sensory deficit Skin Skin exam: Present warm and dry; Absent diaphoresis or erythema Medical Decision Making Medical Records Medical records reviewed: Yes I reviewed the patient's medical records. Ovidio Inquiry Pt receiving controlled substance: No Ovidio was queried for this patient: No Vital Signs: 09/22/23 14:52 09/22/23 15:00 09/22/23 15:38 Temperature 98.2 F Temperature Source Oral Pulse Rate 81 71 Pulse Rate [Left Radial] 86 Respiratory Rate 18 16 Blood Pressure 141/94 H 125/78 Blood Pressure [Right Arm] 145/83 H Blood Pressure Mean 102 Blood Pressure Mean [Right Arm] 103 Blood Pressure Source [Right Arm] Automatic Cuff Blood Pressure Position [Right Arm] Sitting 02 Sat by Pulse Oximetry 94 L 95 92 L Oxygen Delivery Method Room Air Room Air 09/22/23 16:00 Temperature Temperature Source Pulse Rate 74 Pulse Rate [Left Radial] Respiratory Rate Blood Pressure 133/88 Blood Pressure [Right Arm] Blood Pressure Mean Blood Pressure Mean [Right Arm] Blood Pressure Source [Right Arm] Blood Pressure Position [Right Arm] 02 Sat by Pulse Oximetry 96 Oxygen Delivery Method Room Air Lab Data Lab Results 09/22/23 15:05: WBC 17.9 H, RBC 6.22 H, Hgb 17.5, Hct 54.7 H, MCV 88.0, MCH 28.2, MCHC 32.1, RDW 13.4, Plt Count 266, MPV 8.3, Neut % (Auto) 90.5 H, Lymph % (Auto) 4.3 L, [place] % (Auto) 3.2, Eos % (Auto) 1.4, Baso % (Auto) 0.6, Neut # (Auto) 16.2 H, Lymph # (Auto) 0.8, [place] # (Auto) 0.6, Eos # (Auto) 0.3, Baso # (Auto) 0.1, Total Counted 100, Neutrophils % (Manual) 93 H, Lymphocytes % (Manual) 4 L, Monocytes % (Manual) 3, Platelet Estimate Normal, RBC Morphology Normal, Sodium 138, Potassium 4.2, Chloride 105, Carbon Dioxide 23, Anion Gap 14.2, BUN 21 H, Creatinine 0.80, Estimated Creat Clear 205, Estimated GFR 106, Est GFR ( Amer) 128, Glucose 125 H, Calcium 10.1, Total Bilirubin 0.8, AST 42, ALT 50, Alkaline Phosphatase 90, Total Protein 8.6 H, Albumin 4.9, G lobulin 3.7 H, Albumin/Globulin Ratio 1.3, Lipase 56 09/22/23 15:05 09/22/23 15:05 Orders (Tests/Meds): ED MEDICATIONS Discontinued Medications Generic Name Dose Route Start Last Admin Trade Name Aleah PRN Reason Stop Dose Admin Lactated Ringer's 1,000 mls @ 999 mls/hr 09/22/23 15:03 09/22/23 15:10 Lactated Ringer's 1000 Ml Bag IV 09/22/23 16:03 999 mls/hr .Q1H1M ONE Administration Loperamide HCl 4 mg 09/22/23 15:29 09/22/23 15:36 Loperamide 2mg Capsule PO 09/22/23 15:30 4 mg ONCE ONE Administration Ondansetron HCl 4 mg 09/22/23 15:03 09/22/23 15:10 Ondansetron 4mg/2ml Vial IV 09/22/23 15:04 4 mg ONCE ONE Administration ORDERS Category Date Time Status CBC w/Auto Diff [Complete Blood Count Auto Diff] Stat Lab 09/22/23 15:05 Completed CMP [Comprehensive Metabolic Panel] Stat Lab 09/22/23 15:05 Completed Lipase Stat Lab 09/22/23 15:05 Completed Medical Decision Narrative: 43-year-old male history of pancreatitis and hypertension presenting with vomiting and diarrhea. Started today, 09/21. Nonbloody, nonbilious vomiting, nonbloody diarrhea. Generalized abdominal cramping, no pain. Tried to take Zofran, it helped for about 2-1/2 hours, vomited just before arrival, came for further evaluation. 3-4 episodes of diarrhea as well. No recent travel, sick contacts he knows of, or any other relevant history. No surgical abdominal history. History was obtained via conversation with patient. On arrival, patient hemodynamically stable, alert, oriented x4, appropriate, GCS 15, moving all extremities spontaneously, pupils equal and reactive to light. Full physical exam performed and significant for very well-appearing man in no acute distress. Abdomen soft, nontender, nondistended. No overlying skin changes. No flank tenderness. He is hemodynamically stable, nontachycardic, afebrile. Differential includes gastritis, enteritis, gastroenteritis, pancreatitis, metabolic disturbance, infectious diarrhea, inflammatory diarrhea, among others. Patient was given 1 L of LR, Zofran IV for symptomatic management and correction of underlying abnormalities. Patient was also given 4 mg p.o. loperamide after Zofran. Patient was placed in observation beginning at 3 PM in order to give fluids, Zofran, antidiarrheals, wait for labs and reassess for p.o. challenge and determine need for admission versus home-going. The patient was provided meds/serial exams/monitoring while awaiting results. Independent interpretation of results demonstrated nonactionable CBC or chemistry, lipase negative. On reevaluation, patient stating that he does feel nauseous, but he is able to keep down p.o. intake and loperamide. At this time, I feel patient is appropriate for discharge. Total observation time 1.5 hours. Roll Scale Worker disclaimer Much of this encounter note is an electronic teenage program director spoken language to printed text. Electronic teenage program director of the spoken language may permit errors. Although I have reviewed the note, some errors may still exist. Critical Care Critical Care Time Critical Care Time: No
[2023-09-22 15:30] LABS: Basophils # 0.1 K/mm3 (0-0.2); Basophils % 0.6 % (0.1-2.0); Eosinophils # 0.3 K/mm3 (0.0-0.4); Eosinophils % 1.4 % (0.1-12.0); Hematocrit 54.7 % (42.0-52.0); Hemoglobin 17.5 g/dL (14.1-18.0); Lymphocytes # 0.8 K/mm3 (0.7-4.5); Lymphocytes % 4.3 % (10-50); Mean Corpuscular HGB Conc 32.1 g/dL (31.8-35.4); Mean Corpuscular Hemoglobin 28.2 pg (27.0-31.2); Mean Platelet Volume 8.3 fl (7.4-10.4); Monocytes # 0.6 K/mm3 (0.1-1.0); Monocytes % 3.2 % (1.7-9.3); Neutrophils # 16.2 K/mm3 (1.8-7.8); Neutrophils % 90.5 % (37.0-80.0); Platelet Count 266 K/mm3 (142-424); Red Blood Count 6.22 M/mm3 (4.60-6.20); Red Cell Distribution Width 13.4 % (11.5-17.5); White Blood Count 17.9 K/mm3 (4.8-10.8)
[2023-09-22 15:34] LABS: MANUAL DIFFERENTIAL MANUAL DIFFERENTIAL (MANUAL DIFF)
[2023-09-22] MEDS: LOPERAMIDE 2MG CAPSULE 4 MG PO (15:36)
[2023-09-22 15:38] VITALS: BP 125/78; PULSE 71; O2SAT 92
[2023-09-22 15:44] LABS: Chloride 105 mmol/L (98-107); Sodium 138 mmol/L (136-145)
[2023-09-22 15:45] LABS: Potassium 4.2 mmoL/L (3.5-5.1)
[2023-09-22 15:47] LABS: Alanine Aminotransferase 50 U/L (12-78); Alkaline Phosphatase 90 U/L (38-126); Anion Gap 14.2 mEq/L (5-15); Aspartate Amino Transferase 42 U/L (17-59); Bilirubin,Total 0.8 mg/dl (0.2-1.3); Blood Urea Nitrogen 21 mg/dl (9-20); Carbon Dioxide 23 mmol/L (22.0-30.0); Creatinine Clearance Estimated 205 mL/min (50-200); Estimated Glomerular Filt Rate 106 ml/min (>60); GFR (African American) 128 ML/MIN (>60); Lipase 56 U/L (23-300)
[2023-09-22 15:48] LABS: Albumin Level 4.9 g/dl (3.5-5.0); Albumin/Globulin Ratio 1.3 (1.1-1.8); Calcium 10.1 mg/dl (8.4-10.2); Globulin 3.7 g/dL (1.3-3.2); Glucose 125 mg/dl (74-100); Total Protein,Serum 8.6 g/dl (6.3-8.2)
[2023-09-22 16:00] VITALS: BP 133/88; PULSE 74; O2SAT 96
[2023-09-22 16:24] LABS: Lymphocytes % 4 % (10-50); Monocytes % 3 % (2-9); Neutrophils % 93 % (42-76); Platelet Estimate Normal; RBC Morphology Normal; Total Cells Counted 100
[2023-09-22 16:47] VITALS: BP 136/84; PULSE 77; RESP 18; TEMP 36.8; O2SAT 94
== END 2023-09-22 16:48 | disposition home or self-care (01) ==
PROVIDERS: Emergency Provider Emergency Medicine; PCP Internal Medicine
DX: R11.2 Nausea with vomiting, unspecified (principal); R19.7 Diarrhea, unspecified
CPT/HCPCS: 80053; 83690; 85007; 85025; 96361; 96374; 99284; J2405; J7120

== ENCOUNTER 2023-10-19 13:24 | Outpatient (CLI) | payer OTHER, SELFPAY ==
[2023-10-19 13:54] LABS: Basophils # 0.1 K/mm3 (0-0.2); Basophils % 0.7 % (0.1-2.0); Eosinophils # 0.2 K/mm3 (0.0-0.4); Eosinophils % 2.5 % (0.1-12.0); Hematocrit 46.4 % (42.0-52.0); Hemoglobin 15.4 g/dL (14.1-18.0); Lymphocytes # 1.5 K/mm3 (0.7-4.5); Lymphocytes % 23.3 % (10-50); Mean Corpuscular HGB Conc 33.3 g/dL (31.8-35.4); Mean Corpuscular Hemoglobin 29.4 pg (27.0-31.2); Mean Corpuscular Volume 88.3 fl (80-94); Mean Platelet Volume 9.3 fl (7.4-10.4); Monocytes # 0.4 K/mm3 (0.1-1.0); Monocytes % 6.3 % (1.7-9.3); Neutrophils # 4.3 K/mm3 (1.8-7.8); Neutrophils % 67.2 % (37.0-80.0); Platelet Count 261 K/mm3 (142-424); Red Blood Count 5.25 M/mm3 (4.60-6.20); Red Cell Distribution Width 13.7 % (11.5-17.5); White Blood Count 6.4 K/mm3 (4.8-10.8)
[2023-10-19 14:37] LABS: Alanine Aminotransferase 45 U/L (12-78); Albumin Level 4.4 g/dl (3.5-5.0); Albumin/Globulin Ratio 1.7 (1.1-1.8); Alkaline Phosphatase 77 U/L (38-126); Anion Gap 15.1 mEq/L (5-15); Aspartate Amino Transferase 33 U/L (17-59); Blood Urea Nitrogen 22 mg/dl (9-20); Calcium 9.2 mg/dl (8.4-10.2); Carbon Dioxide 28 mmol/L (22.0-30.0); Chloride 100 mmol/L (98-107); Chol/HDL Ratio 4.8 (1-3.5); Cholesterol 200 mg/dl (140-200); Estimated Glomerular Filt Rate 124 ml/min (>60); GFR (African American) 150 ML/MIN (>60); Globulin 2.6 g/dL (1.3-3.2); Glucose 92 mg/dl (74-100); HDL Cholesterol 42 mg/dl (40-60); Potassium 4.1 mmoL/L (3.5-5.1); Sodium 139 mmol/L (136-145); Triglycerides 147 mg/dl (30-150); VLDL Cholesterol 29 mg/dL (0-40)
[2023-10-19 14:53] LABS: Direct LDL Cholesterol 124.72 mg/dL (100-129)
== END 2023-10-19 23:59 | disposition home or self-care (01) ==
LOC: LAB.DROPOF 13:24
PROVIDERS: PCP Internal Medicine; Visit Provider Internal Medicine
DX: E78.5 Hyperlipidemia, unspecified (principal); I10 Essential (primary) hypertension
CPT/HCPCS: 80053; 80061; 85025

== ENCOUNTER 2024-05-02 08:42 | Outpatient (CLI) | payer OTHER, SELFPAY ==
[2024-05-02 15:30] LABS: Alanine Aminotransferase 28 U/L (12-78); Albumin Level 4.5 g/dl (3.5-5.0); Albumin/Globulin Ratio 2.3 (1.1-1.8); Alkaline Phosphatase 72 U/L (38-126); Anion Gap 14.9 mEq/L (5-15); Aspartate Amino Transferase 30 U/L (17-59); Blood Urea Nitrogen 25 mg/dl (9-20); Calcium 9.2 mg/dl (8.4-10.2); Carbon Dioxide 26 mmol/L (22.0-30.0); Chloride 100 mmol/L (98-107); Chol/HDL Ratio 5.2 (1-3.5); Cholesterol 162 mg/dl (140-200); Estimated Glomerular Filt Rate 106 ml/min (>60); GFR (African American) 128 ML/MIN (>60); Glucose 67 mg/dl (74-100); HDL Cholesterol 31 mg/dl (40-60); Potassium 3.9 mmoL/L (3.5-5.1); Sodium 137 mmol/L (136-145); Total Protein,Serum 6.5 g/dl (6.3-8.2); Triglycerides 94 mg/dl (30-150); VLDL Cholesterol 19 mg/dL (0-40)
[2024-05-02 15:40] LABS: Direct LDL Cholesterol 104.73 mg/dL (100-129)
== END 2024-05-02 23:59 | disposition home or self-care (01) ==
LOC: LAB.DROPOF 05-04 08:43
PROVIDERS: PCP Internal Medicine; Visit Provider Internal Medicine
DX: R73.02 Impaired glucose tolerance (oral) (principal); I10 Essential (primary) hypertension; E66.01 Morbid (severe) obesity due to excess calories; E78.5 Hyperlipidemia, unspecified
CPT/HCPCS: 80053; 80061; 83036

== ENCOUNTER 2024-05-09 12:27 | Outpatient (CLI) | payer OTHER, SELFPAY ==
[2024-05-09 11:31] LABS: Basophils # 0.1 K/mm3 (0-0.2); Basophils % 0.5 % (0.1-2.0); Eosinophils # 0.3 K/mm3 (0.0-0.4); Eosinophils % 2.1 % (0.1-12.0); Hemoglobin 14.6 g/dL (14.1-18.0); Lymphocytes # 1.4 K/mm3 (0.7-4.5); Lymphocytes % 10.5 % (10-50); Mean Corpuscular HGB Conc 32.4 g/dL (31.8-35.4); Mean Corpuscular Volume 86.2 fl (80-94); Mean Platelet Volume 11.1 fl (7.4-10.4); Monocytes # 1.1 K/mm3 (0.1-1.0); Monocytes % 8.7 % (1.7-9.3); Neutrophils # 10.2 K/mm3 (1.8-7.8); Neutrophils % 77.7 % (37.0-80.0); Platelet Count 231 K/mm3 (142-424); Red Blood Count 5.22 M/mm3 (4.60-6.20); Red Cell Distribution Width 12.4 % (11.5-17.5); White Blood Count 13.1 K/mm3 (4.8-10.8)
[2024-05-09 11:43] LABS: Lipase 75 U/L (23-300)
--- NOTE | 2024-05-09 12:26 | CT_ITS ---
FINAL REPORT TECHNIQUE: Noncontrast CT exam of the abdomen and pelvis. This study was performed with techniques to keep radiation doses as low as reasonably achievable (ALARA). Individualized dose reduction techniques using automated exposure control or adjustment of mA and/or kV according to the patient''s size were employed. CLINICAL HISTORY: Right lower quadrant pain COMPARISON: 06/14/2022 FINDINGS: Abdomen: There is hazy density surrounding the pancreatic head within the central mesentery. This could represent residual changes from previous pancreatitis or recurrent pancreatitis. Correlate with pancreatic enzymes. The remaining solid organs are unremarkable. The gallbladder is unremarkable. The bowel is unremarkable. Pelvis: The appendix is normal. The bladder and prostate are unremarkable. No fluid collection or adenopathy is seen. IMPRESSION: No evidence of appendicitis or findings to account for right lower quadrant pain Inflammatory changes surrounding the pancreatic head and central mesentery may represent chronic changes from prior pancreatitis or recurrent pancreatitis. Correlation with pancreatic enzymes recommended. Reviewed, Interpreted and Dictated by Janina Mendoza MD Transcribed by Laurie Lizarraga Authenticated and [facility]
== END 2024-05-09 23:59 | disposition home or self-care (01) ==
LOC: RAD 12:27
PROVIDERS: PCP Internal Medicine; Visit Provider Internal Medicine
DX: R10.31 Right lower quadrant pain (principal); Z87.19 Personal history of other diseases of the digestive system
CPT/HCPCS: 74176; 83690; 85025

== ENCOUNTER 2024-08-08 14:57 | Outpatient (CLI) | payer OTHER, SELFPAY ==
[2024-08-08 16:52] LABS: Albumin Level 4.4 g/dl (3.5-5.0); Chloride 101 mmol/L (98-107); Potassium 4.4 mmoL/L (3.5-5.1); Sodium 136 mmol/L (136-145)
[2024-08-08 16:54] LABS: Blood Urea Nitrogen 16 mg/dl (9-20); Estimated Glomerular Filt Rate 147 ml/min (>60); GFR (African American) 178 ML/MIN (>60)
[2024-08-08 16:55] LABS: Alanine Aminotransferase 32 U/L (12-78); Albumin/Globulin Ratio 1.7 (1.1-1.8); Alkaline Phosphatase 69 U/L (38-126); Anion Gap 13.4 mEq/L (5-15); Aspartate Amino Transferase 30 U/L (17-59); Bilirubin,Total 0.9 mg/dl (0.2-1.3); Calcium 8.7 mg/dl (8.4-10.2); Carbon Dioxide 26 mmol/L (22.0-30.0); Chol/HDL Ratio 3.6 (1-3.5); Cholesterol 191 mg/dl (140-200); Globulin 2.6 g/dL (1.3-3.2); Glucose 67 mg/dl (74-100); HDL Cholesterol 53 mg/dl (40-60); Triglycerides 132 mg/dl (30-150); VLDL Cholesterol 26 mg/dL (0-40)
[2024-08-08 17:06] LABS: Direct LDL Cholesterol 109.53 mg/dL (100-129)
[2024-08-08 18:20] LABS: Hemoglobin A1C 5.2 % (4.0-6.0)
== END 2024-08-08 23:59 | disposition home or self-care (01) ==
LOC: LAB.DROPOF 14:57
PROVIDERS: PCP Internal Medicine; Visit Provider Internal Medicine
DX: E78.5 Hyperlipidemia, unspecified (principal); I10 Essential (primary) hypertension; E66.01 Morbid (severe) obesity due to excess calories
CPT/HCPCS: 36415; 80053; 80061; 83036

== ENCOUNTER 2025-02-11 12:31 | Outpatient (CLI) | payer OTHER, SELFPAY ==
[2025-02-11 15:25] LABS: Albumin Level 3.9 g/dl (3.5-5.0); Chloride 98 mmol/L (98-107); Potassium 3.9 mmoL/L (3.5-5.1); Sodium 136 mmol/L (136-145)
[2025-02-11 15:28] LABS: Alanine Aminotransferase 18 U/L (12-78); Albumin/Globulin Ratio 1.6 (1.1-1.8); Alkaline Phosphatase 86 U/L (38-126); Anion Gap 12.9 mEq/L (5-15); Aspartate Amino Transferase 21 U/L (17-59); Bilirubin,Total 1.0 mg/dl (0.2-1.3); Blood Urea Nitrogen 19 mg/dl (9-20); Carbon Dioxide 29 mmol/L (22.0-30.0); Cholesterol 165 mg/dl (140-200); Creatinine,Serum 0.80 mg/dl (0.66-1.25); Estimated Glomerular Filt Rate 105 ml/min (>60); GFR (African American) 127 ML/MIN (>60); Globulin 2.5 g/dL (1.3-3.2); Total Protein,Serum 6.4 g/dl (6.3-8.2); Triglycerides 77 mg/dl (30-150)
[2025-02-11 15:29] LABS: Calcium 8.5 mg/dl (8.4-10.2); Glucose 75 mg/dl (74-100); HDL Cholesterol 39 mg/dl (40-60)
== END 2025-02-11 23:59 ==
LOC: LAB.DROPOF 02-13 12:32
PROVIDERS: PCP Internal Medicine; Visit Provider Internal Medicine
DX: E78.5 Hyperlipidemia, unspecified (principal); R73.02 Impaired glucose tolerance (oral); E66.01 Morbid (severe) obesity due to excess calories; I10 Essential (primary) hypertension
CPT/HCPCS: 80053; 80061